=== PATIENT | female | born 1980 | race African-American/Black ===

== ENCOUNTER 2017-06-10 13:22 | Day surgery (SDC) | payer BC ==
[~2017-06-10] VITALS: Ht 165.1 cm; Wt 89.0 kg
[~2017-06-10 13:22] MED LIST: AMOXICILLIN 50500 MG PO; FLOMAX 0.40.4 MG/CAP PO; NORCO 325 MG-51 TAB PO; ZOFRAN 4MG T4 MG/TAB PO; ZYRTEC 10MG10 MG PO
[2017-06-10 13:44] VITALS: BP 136/93; PULSE 83; TEMP 97.6
[2017-06-10] MEDS ORDERED: PRILOSEC 20MG20 MG PO (13:52)
[2017-06-10] MEDS ORDERED: ALDACTONE50 MG PO (13:53)
[2017-06-10 14:40] VITALS: BP 132/91; PULSE 72; TEMP 98.1
[2017-06-10 14:55] VITALS: BP 122/83; PULSE 68
[2017-06-10 15:10] VITALS: BP 120/75; PULSE 63
[2017-06-10 15:30] VITALS: BP 118/78; PULSE 64
== END 2017-06-10 15:40 | disposition home or self-care (01) ==
LOC: SDCO 13:22
DX: K21.0 Gastro-esophageal reflux disease with esophagitis (principal); E66.9 Obesity, unspecified; Z68.37 Body mass index [BMI] 37.0-37.9, adult
CPT/HCPCS: C1726; J2250; J2405; J3010; J7030

== ENCOUNTER → 2020-02-27 | Outpatient (CLI) | payer BC ==
[~2020-02-27] MED LIST changes: +ALDACTONE50 MG PO; +PRILOSEC 20MG20 MG PO
== END ==
LOC: DIA.ED
DX: O24.419 Gestational diabetes mellitus in pregnancy, unspecified control (principal); I10 Essential (primary) hypertension
CPT/HCPCS: G0108

== ENCOUNTER 2020-04-11 11:12 | Inpatient (IN) | payer BC ==
[2020-04-11] VITALS (17 sets, daily range): BP systolic 107–166; BP diastolic 55–94; PULSE 60–90; TEMP 98.6
[~2020-04-11] VITALS: Ht 156.2 cm; Wt 98.2 kg
--- NOTE | 2020-04-11 11:20 | NUR ---
Pt arrives on unit ambulatory with spouse for primary c/s for low JUSTUS. Changed into clean gown. EFM and toco applied. BP elevated. Other VS WNL. IV started in LW. Labs drawn. LR infusing. Admission assessment completed. Consents signed. PT updated on POC. Bed locked in low position. Call light within reach. Denies regular ctx, LOF, vaginal bleeding and reports GFM.
[2020-04-11] MEDS ORDERED: NORMODYNE200 MG PO (11:41)
[2020-04-11 11:57] LABS: BASO % 0.1 % (0.0-2.0); EOS # 0.1 (0.0-0.7); EOS % 0.7 % (0-4.0); GRAN # 9.7 (1.4-6.5); GRAN % 80.3 % (42.2-75.2); HEMATOCRIT 37.5 % (37.0-47.0); HEMOGLOBIN 12.4 g/dl (12.5-16.0); LYMPH # 1.5 (1.2-3.4); LYMPH % 12.6 % (20.0-51.0); MEAN CELL VOLUME 85 fl (80.0-100.0); MEAN CORPUSCULAR HEMOGLOBIN 28 pg (27.0-31.0); MEAN CORPUSCULAR HGB CONC 33 g/dl (33.0-37.0); MEAN PLATELET VOLUME 10.1 fl (7.4-10.4); MONO # 0.7 (0.1-0.6); MONO % 5.8 % (1.7-9.3); PLATELET COUNT 349 K/mm3 (130-400); RED BLOOD COUNT 4.42 M/mm3 (4.10-5.30); REDCELL DISTRIBUTION WIDTH-CV 14.5 % (11.5-14.5)
[2020-04-12 03:00] VITALS: BP 116/72; PULSE 77; TEMP 97.9
[2020-04-12 07:45] VITALS: BP 115/59; PULSE 69; TEMP 98.6
[2020-04-12] MEDS ORDERED: PERCOCET 325 MG1 TA2 PO (10:18)
[2020-04-12] MEDS ORDERED: IBU600 MG PO (10:18)
[2020-04-12 11:21] VITALS: BP 109/62; PULSE 83; TEMP 98
--- NOTE | 2020-04-12 12:49 | NUR ---
Storage Administrator offered congrats to patient.
--- NOTE | 2020-04-12 14:19 | NUR ---
pt refuses covid swab
[2020-04-12 14:55] VITALS: BP 111/68; PULSE 68; TEMP 97.9
[2020-04-12 19:15] VITALS: BP 148/79; PULSE 76; TEMP 98.1
[2020-04-13 07:43] VITALS: BP 147/84; PULSE 85; TEMP 98
--- NOTE | 2020-04-13 07:54 | NUR ---
PATIENT NOTFIED THAT WE MAY FIND PATIENT A NEW CARSEAT BASED ON CARSEAT HAVING NO CHEST CLIP, NO WEIGHT RESTRICTION LISTED ON SIDE AND NO SAFETY INSTRUCTIONS. PATIENT STATES SHE ORDERED IT ONLINE AND THINKS IT CAME FROM [place]
--- NOTE | 2020-04-13 10:00 | NUR ---
PATIENT REQUESTED PUMP. PATIENT PUMPED 10 MLS AND BREAST MILK GIVEN TO
[2020-04-13 11:45] VITALS: BP 120/70; PULSE 80; TEMP 98
--- NOTE | 2020-04-13 13:42 | NUR ---
PATIENT STAATED SHE HAS BEEN ABLE TO HAVE A BOWEL MOVEMENT, REFUSED STOOL SOFENER
--- NOTE | 2020-04-13 14:18 | NUR ---
Sw received a referral for a car seat for patients . The one purchased by the patient did not meet requirements. SW attempted to contact agencies to locate a car seat to borrow, or obtain for free however was unsuccessful. RUI did correspond with patients nurse who reported that patient will not be discharged until tomorrow.
[2020-04-13 16:05] VITALS: BP 143/83; PULSE 80; TEMP 98
--- NOTE | 2020-04-13 18:08 | NUR ---
PATIENT WATCHED VIDEOS
[2020-04-13 20:30] VITALS: BP 145/75; PULSE 81; TEMP 98.6
[2020-04-14 08:30] VITALS: BP 143/69; PULSE 84; TEMP 97.6
--- NOTE | 2020-04-14 08:55 | NUR ---
fruit i farmworker spoke with Renetta [facility] and confirmed that the unit has an appropriate car seat for at this time.
--- NOTE | 2020-04-14 09:19 | NUR ---
Initial visit; Parents thanked Working [employer] for offering congratulations and God's blessings for the of their daughter. Working Second Hand thanked family for choosing [facility].
== END 2020-04-14 12:50 | disposition home or self-care (01) | DRG 787 ==
LOC: OB 11:12
PROVIDERS: ADMIT Obstetrics & Gynecology
PROC: 10D00Z1 Extraction of Products of Conception, Low, Open Approach (ICD-10-PCS; principal; 2020-04-11)
DX: O41.03X0 Oligohydramnios, third trimester, not applicable or unspecified (principal); O10.92 Unspecified pre-existing hypertension complicating childbirth; Z37.0 Single live birth; O99.214 Obesity complicating childbirth; E66.9 Obesity, unspecified; O24.420 Gestational diabetes mellitus in childbirth, diet controlled; Z3A.37 37 weeks gestation of pregnancy
CPT/HCPCS: J1885; J2270; J2370; J2405; J2791; J3010; J7120

== ENCOUNTER 2021-10-19 22:57 | Emergency (ER) | payer BC ==
[~2021-10-19] VITALS: Ht 154.9 cm; Wt 90.9 kg
[~2021-10-19 22:57] MED LIST changes: +IBU600 MG PO; +NORMODYNE200 MG PO; +PERCOCET 325 MG1 TA2 PO
[2021-10-19 23:31] LABS: BASO % 0.3 % (0.0-2.0); EOS # 0.1 K/mm3 (0.0-0.7); EOS % 1.5 % (0.0-4.0); GRAN # 4.5 K/mm3 (1.4-6.5); GRAN % 59.4 % (42.2-75.2); HEMATOCRIT 39.8 % (37.0-47.0); HEMOGLOBIN 13.3 g/dl (12.5-16.0); LYMPH # 2.3 K/mm3 (1.2-3.4); LYMPH % 30.2 % (20.0-51.0); MEAN CELL VOLUME 83 fl (80.0-100.0); MEAN CORPUSCULAR HEMOGLOBIN 28 pg (27-31); MEAN CORPUSCULAR HGB CONC 33 g/dl (33.0-37.0); MEAN PLATELET VOLUME 9.6 fl (7.4-10.4); MONO # 0.6 K/mm3 (0.1-0.6); MONO % 8.3 % (1.7-9.3); PLATELET COUNT 341 K/mm3 (130-400); RED BLOOD COUNT 4.77 M/mm3 (4.10-5.30); REDCELL DISTRIBUTION WIDTH-CV 13.4 % (11.5-14.5)
[2021-10-19 23:48] LABS: ALANINE AMINOTRANSFERASE 17 U/L (0-55); ALBUMIN 3.6 gm/dL (3.5-5.0); ALKALINE PHOSPHATASE 102 U/L (40-150); ANION GAP 11 mmol/L (7-16); AST,SGOT 17 U/L (5-34); BILIRUBIN,TOTAL 0.2 mg/dL (0.2-1.2); BLOOD UREA NITROGEN 17 mg/dL (7-19); CALCIUM 9.4 mg/dL (8.4-10.2); CARBON DIOXIDE 26 mmol/L (22-29); CHLORIDE 104 mmol/L (98-107); CREATININE, serum 0.75 mg/dL (0.57-1.11); GLUCOSE 90 mg/dL (70-99); POTASSIUM 3.2 mmol/L (3.5-4.5); SODIUM 141 mmol/L (136-145); TOTAL PROTEIN 7.8 gm/dL (6.2-8.1)
[2021-10-20] LABS: TROPONIN-I < 0.010 ng/mL (0.00-0.033)
[2021-10-20] MEDS ORDERED: K-TAB20 PO (01:05)
[2021-10-20] MEDS ORDERED: K-DUR20 MEQ PO (01:05)
[2021-10-20 01:15] VITALS: BP 143/98; PULSE 80; TEMP 98.4
== END 2021-10-20 01:23 | disposition home or self-care (01) ==
LOC: COL.ER 22:57
PROVIDERS: Physician Assistant
DX: I16.0 Hypertensive urgency (principal); E87.6 Hypokalemia; Z28.310 Unvaccinated for COVID-19
CPT/HCPCS: J0360